=== PATIENT | male | born 1965 | race Caucasian/White ===

== ENCOUNTER 2016-11-02 10:39 | Observation (INO) | payer MEDICARE ==
[2016-11-02] MEDS ORDERED: Sodium Chloride 0.9% 10 ML FLUSH Syringe IV PRN (13:53)
[2016-11-02] MEDS ORDERED: Ativan 2 MG/1 ML VIAL IV PRN (13:53)
[2016-11-02] MEDS ORDERED: DIPRIVAN 200 MG/20 ML IV ONE (14:26)
[2016-11-02] MEDS ORDERED: Versed 2 MG/2 ML Injection IV ONE (14:26)
[2016-11-02] MEDS ORDERED: Golytely Solution 4000 ML PO ONE (15:00)
[2016-11-02] MEDS: Sodium Chloride 0.9% 10 ML FLUSH Syringe IV SCH ×2 (15:47→20:27)
[2016-11-02] MEDS ORDERED: IMODIUM 2 MG PO PRN (17:18)
[2016-11-02] MEDS ORDERED: DEXTROMETHORPHAN PO PRN (17:18)
[2016-11-02] MEDS ORDERED: BACITRACIN TP PRN (17:18)
[2016-11-02] MEDS ORDERED: TYLENOL 325 MG PO PRN (17:18)
[2016-11-02] MEDS ORDERED: [UNRECOGNIZED DRUG - REMARK] PO PRN (17:18)
[2016-11-02] MEDS ORDERED: GUAIFENESIN PO PRN (17:18)
[2016-11-02] MEDS ORDERED: BACIGUENT 30 GM TOP PRN (17:27)
[2016-11-02] MEDS ORDERED: Robitussin-Dm Syrup PO PRN (17:29)
[2016-11-02] MEDS ORDERED: MAALOX ES 30 ML UNIT DOSE PO PRN (17:30)
[2016-11-02] MEDS: Klonopin 0.5 MG PO SCH ×2 (17:50→20:27)
[2016-11-02] MEDS ORDERED: MEDICATION INTERVENTION MC PRN (18:13)
--- NOTE | 2016-11-02 20:12 | PCM.HP ---
History of Present Illness - Chief Complaint Chief Complaint: chronic abdominal pain,colonoscopy (in a.m.) History of Present Illness: is a 51 year old male mentally retarded patient from [facility] who is here for colon prep and colonoscopy. He has complained of chronic abdominal pain for some time, has been on PPI without relief. Pt lives in a longterm and has minimal verbal abilities. When asked, does admit to having a headache. - Review of Systems All Other Systems: Unable due to condition (mentally retarded/limited verbal abilities) Medications & Allergies Home Medications: Home Medication List Acetaminophen 325 mg [Tylenol 325 mg] 325 mg PO Q6HPRN PRN 11/02/16 [ History Confirmed 11/02/16] Acetaminophen [Tylenol Extra Strength] 500 mg PO BID 11/02/16 [History Confirmed 11/02/16] Atorvastatin Calcium [Lipitor] 10 mg PO HS 11/02/16 [History Confirmed 11/02/16] Bacitracin 1 each TP TID PRN PRN 11/02/16 [History Confirmed 11/02/16] Benztropine Mesylate 0.5 mg PO BID 11/02/16 [History Confirmed 11/02/16] Cetirizine HCl [Zyrtec] 10 mg PO DAILY 11/02/16 [History Confirmed 11/02/16] Chlorpheniramine Maleate [Allergy] 4 mg PO TIDPRN PRN 11/02/16 [History Confirmed 11/02/16] Clonazepam 0.5 mg [Klonopin 0.5 MG] 0.5 mg PO TID 11/02/16 [History Confirmed 11/02/16] Cyanocobalamin (Vitamin B-12) [Vitamin B-12] 1,000 mcg SL DAILY 11/02/16 [ History Confirmed 11/02/16] Guaifenesin/Dextromethorphan [Guaifenesin-Dm Solution] 10 ml PO DAILY PRN PRN [History Confirmed 11/02/16] Linaclotide [Linzess] 145 mcg PO DAILY 11/02/16 [History Confirmed 11/02/16] Loperamide HCl 2 mg [Imodium 2 mg] 2 mg PO TID PRN PRN 11/02/16 [History Confirmed 11/02/16] Mag Hydrox/Al Hydrox/Simeth [Maalox Es 30 ml Unit Dose] 30 ml PO TIDPRN [History Confirmed 11/02/16] Metoprolol Tartrate [Lopressor] 50 mg PO BID 11/02/16 [History Confirmed ] Naproxen [Naprosyn] 500 mg PO BIDPRN PRN 11/02/16 [History Confirmed 11/02/16] Omeprazole 20 MG [Prilosec 20 mg] 20 mg PO DAILY 11/02/16 [History Confirmed ] Risperidone [Risperdal] 2 mg PO QAM 11/02/16 [History Confirmed 11/02/16] Risperidone [Risperdal] 4 mg PO HS 11/02/16 [History Confirmed 11/02/16] Allergies/Adverse Reactions: Allergies Allergy/AdvReac Type Severity Reaction Status Date / Time No Known Drug Allergies Allergy Verified 12/25/14 06:23 - Past Medical History Past Medical History: Yes Neurological History: Other ENT History: Other Cardiac History: Hypertension, Other Respiratory History: No Pertinent History Endocrine Medical History: No Pertinent History Musculoskelatal History: Arthritis GI Medical History: GERD History: No Pertinent History Pyscho-Social History: Other Male Reproductive Disorders: No Pertinent History Comment: EXPLOSIVE BEHAVIOR. MENTAL RETARDED. ALLERGIES, TACHYCARDIA. Right ankle arthritis. nystagmus - Past Surgical History Past Surgical History: Yes Neuro Surgical History: No Pertinent History Cardiac History: No Pertinent History Respiratory Surgery: No Pertinent History GI Surgical History: No Pertinent History Genitourinary Surgical Hx: No Pertinent History Musculskeletal Surgical Hx: No Pertinent History, Other Male Surgical History: No Pertinent History Other Surgical History: dental - Social History Smoking Status: Never smoker Exposure to second hand smoke: No Alcohol: None Drug Use: none - Physical Exam Vital Signs: Vital Signs - 24 hr Temp Pulse Resp BP Pulse Ox 11/02/16 14:58 97.8 F 95 H 20 135/82 95 11/02/16 14:46 97.8 F 100 H 135/82 General Appearance: no apparent distress, other (He does have his hand on his L forehead) Neurologic Exam: alert, cooperative Eye Exam: eyes nml inspection Respiratory Exam: lungs clear, No crackles/rales, No rhonchi, No wheezing Cardiovascular Exam: regular rate/rhythm, No murmur Gastrointestinal/Abdomen Exam: soft, other (hypoactive bowel sounds. generalized TTP diffusely, no guarding or rebound) Back Exam: normal inspection Extremity Exam: No pedal edema Skin Exam: normal color, warm, dry Assessment/Plan (1) Abdominal pain Current Visit: No Status: Acute Qualifiers: Abdominal location: generalized Qualified Code(s): R10.84 - Generalized abdominal pain Assessment & Plan: Unable to specify location. Chronic. Pt to have colonoscopy; would recommend he have an EGD as well unless one has been done recently (I did attempt to check in EMR but unable to access his record at this time). Code(s): R10.9 - UNSPECIFIED ABDOMINAL PAIN (2) Profoundly mentally retarded Current Visit: Yes Status: Chronic Code(s): F73 - PROFOUND INTELLECTUAL DISABILITIES (3) Headache Current Visit: Yes Status: Acute Qualifiers: Headache type: unspecified Headache chronicity pattern: acute headache Intractability: not intractable Qualified Code(s): R51 - Headache Assessment & Plan: He did have his blinds open and the bright sunlight was shining in his eyes when I came to see him. He will get tylenol, more pain meds if needed. Code(s): R51 - HEADACHE
[2016-11-02] MEDS: Lopressor 50 MG PO SCH (20:25)
[2016-11-02] MEDS: Risperdal 1 MG PO SCH (20:25)
[2016-11-02] MEDS: TYLENOL EXTRA STRENGTH 500 MG PO SCH (20:26)
[2016-11-02] MEDS: COGENTIN 0.5 MG PO SCH (20:26)
[2016-11-02] MEDS: Zocor 10MG PO SCH (20:27)
[2016-11-02] MEDS ORDERED: NON-FORMULARY ITEM (Atorvastatin Calcium [Lipitor] 10 MG) PO SCH (22:00)
[2016-11-02] MEDS ORDERED: RISPERIDONE 4 MG PO SCH (22:00)
[2016-11-03] MEDS: Sodium Chloride 0.9% 10 ML FLUSH Syringe IV SCH ×3 (05:19→22:58)
[2016-11-03] MEDS ORDERED: Lactated Ringers 1,000 ML IV SCH (05:30)
[2016-11-03 05:42] LABS: Mean Cell Volume 84.2 fl (78-100); Mean Corpuscular Hemoglobin 28.3 pg (26-32); Mean Platelet Volume 10.6 fl (6-9.5); Platelet Count 118 K/mm3 (150-450); Red Blood Count 4.48 M/mm3 (4.1-5.6); White Blood Count 4.6 K/mm3 (4.0-10.5)
[2016-11-03 06:03] LABS: ALBUMIN 3.6 g/dL (3.4-5.0); ALKALINE PHOSPHATASE 93 U/L (46-116); BLOOD UREA NITROGEN 8 mg/dL (9-20); CHLORIDE 110 mEq/L (98-107); Carbon Dioxide 28.9 mEq/L (21-32); Glucose 96 MG/DL (70-110); Potassium 3.6 mEq/L (3.5-5.1); SGOT/AST 27 U/L (15-37); SGPT/ALT 53 U/L (12-78); SODIUM 145 mEq/L (136-145); Total Protein 6.9 gm/dL (6.4-8.2)
[2016-11-03] MEDS ORDERED: Lactated Ringers 1,000 ML IV ONE (09:09)
--- NOTE | 2016-11-03 09:14 | PCM.NOTE ---
Date and Time: 11/03/16911 Subjective Assessment: Colon prep inadequate, so he is receiving enemas. He denies PATEL today. - Review of Systems Constitutional: No Fever Abdominal/Gastrointestinal: No Vomiting Objective Exam General Appearance: no apparent distress Neurologic Exam: alert, cooperative Skin Exam: normal color, warm, dry Respiratory Exam: normal breath sounds, crackles/rales, rhonchi, No wheezing Cardiovascular Exam: regular rate/rhythm, normal heart sounds, No murmur Gastrointestinal/Abdomen Exam: soft, No tenderness, No distention, No mass Extremity Exam: normal inspection OBJECTIVE DATA Vital Signs: Vital Signs - 24 hr Temp Pulse Resp BP Pulse Ox 11/03/16 07:11 97.8 F 74 20 130/80 96 11/03/16 06:18 97.6 F 77 18 119/69 93 L 11/03/16 06:04 97.6 F 77 18 119/69 93 L 11/03/16 04:00 97.8 F 74 18 122/76 92 L 11/03/16 00:00 98.1 F 73 17 114/74 92 L 11/02/16 20:00 97.9 F 102 H 19 138/69 92 L 11/02/16 14:58 97.8 F 95 H 20 135/82 95 11/02/16 14:46 97.8 F 100 H 135/82 Pain Assessment - Last Documented Pain Scale Used [facility] Intake and Output: Intake & Output 10/31/16 11/01/16 11/02/16 11/03/16 11:59 11:59 11:59 11:59 Intake Total 2860 Balance 2860 Weight 104.099 kg Lab Results: Lab Results-Last 24 Hours 11/03/16 11/03/16 Range/Units 05:05 05:05 WBC 4.6 (4.0-10.5) K/mm3 RBC 4.48 (4.1-5.6) M/mm3 Hgb 12.7 (12.5-18.0) gm/dl Hct 37.7 L (42-50) % MCV 84.2 (78-100) fl MCH 28.3 (26-32) pg MCHC 33.7 (32-36) g/dl RDW 14.0 (11.5-14.0) % Plt Count 118 L (150-450) K/mm3 MPV 10.6 H (6-9.5) fl Sodium 145 (136-145) mEq/L Potassium 3.6 (3.5-5.1) mEq/L Chloride 110 H (98-107) mEq/L Carbon Dioxide 28.9 (21-32) mEq/L Anion Gap 10.0 (5-15) MEQ/L BUN 8 L (9-20) mg/dL Creatinine 0.93 (0.55-1.30) mg/dl Estimated GFR > 60 ML/MIN Glucose 96 (70-110) MG/DL Calcium 8.9 (8.5-10.1) mg/dL Total Bilirubin 0.50 (0.2-1.0) mg/dL AST 27 (15-37) U/L ALT 53 (12-78) U/L Alkaline Phosphatase 93 (46-116) U/L Serum Total Protein 6.9 (6.4-8.2) gm/dL Albumin 3.6 (3.4-5.0) g/dL Assessment/Plan (1) Abdominal pain Current Visit: No Status: Acute Qualifiers: Abdominal location: generalized Qualified Code(s): R10.84 - Generalized abdominal pain Assessment & Plan: EGD/colonoscopy this morning with Dr. Martin, thank you! Code(s): R10.9 - UNSPECIFIED ABDOMINAL PAIN (2) Headache Current Visit: Yes Status: Resolved Qualifiers: Headache type: unspecified Headache chronicity pattern: acute headache Intractability: not intractable Qualified Code(s): R51 - Headache Code(s): R51 - HEADACHE (3) Moderately mentally retarded Current Visit: Yes Status: Chronic Code(s): F71 - MODERATE INTELLECTUAL DISABILITIES
--- NOTE | 2016-11-03 09:31 | OP ---
SURGERY DATE/TIME: 11/03/2016 0830 PREOPERATIVE DIAGNOSES: 1) Chronic abdominal pain. 2) Chronic diarrhea. POSTOPERATIVE DIAGNOSES: 1) Normal EGD. 2) Normal colon. 3) Poor bowel prep. PROCEDURES: 1) EGD. 2) Colonoscopy. SURGEON: Adam Martin M.D. ANESTHESIA: MAC by Henry Myers CRNA. ESTIMATED BLOOD LOSS: None. SPECIMENS: None. DESCRIPTION OF PROCEDURE: After informed written consent was obtained, the patient was taken to the endoscopy suite. He underwent monitored anesthesia and a bite block was inserted. The endoscope was inserted into the posterior oropharynx and under direct visualization the esophagus was traversed. The esophageal mucosa had a normal appearance. The gastroesophageal junction appeared normal upon entering the stomach. The gastric mucosa had a normal rugated appearance free of any lesions or defects. The gastric antrum was noted to be within normal limits. The pylorus was traversed and the duodenum had a normal mucosal appearance as well. Upon withdrawal all mucosal surfaces again appeared normal free of lesions or defects. The scope was removed and the scopes were switched. A digital rectal exam then showed normal sphincter tone and no internal lesions. The scope was inserted in the rectum and sequentially the entire colonic mucosa was traversed. There was semisolid and liquid stool present throughout the entire length of the colon. The level of cecum was reached and verified with direct visualization of ileocecal valve. Upon withdrawal careful mucosal inspection revealed no gross mucosal abnormalities. Prior to withdrawal retroflexion was within normal limits. The scope was removed and the patient was transferred to the recovery room in good condition.
[2016-11-03] MEDS ORDERED: NON-FORMULARY ITEM (Omeprazole 20 Mg [Prilosec 20 Mg] 20 MG) PO SCH (10:00)
[2016-11-03] MEDS ORDERED: NON-FORMULARY ITEM (Cetirizine Hcl [Zyrtec] 10 MG) PO SCH (10:00)
[2016-11-03] MEDS ORDERED: NON-FORMULARY ITEM (Linaclotide [Linzess] 145 MCG) PO SCH (10:00)
[2016-11-03] MEDS ORDERED: NON-FORMULARY ITEM (Cyanocobalamin (Vitamin B-12) [Vitamin B-12] 1,000 MCG) SL SCH (10:00)
[2016-11-03] MEDS ORDERED: NON-FORMULARY ITEM (Risperidone [Risperdal] 2 MG) PO SCH (10:00)
[2016-11-03] MEDS: CLARITIN 10 MG PO SCH (11:49)
[2016-11-03] MEDS: Lopressor 50 MG PO SCH ×2 (11:49→22:57)
[2016-11-03] MEDS: TYLENOL EXTRA STRENGTH 500 MG PO SCH ×3 (11:49→22:58)
[2016-11-03] MEDS: Protonix 40MG Tablet PO SCH (11:50)
[2016-11-03] MEDS: Risperdal 1 MG PO SCH ×2 (11:50→22:57)
[2016-11-03] MEDS: Klonopin 0.5 MG PO SCH ×3 (11:50→22:56)
[2016-11-03] MEDS: Vitamin B-12 500 MCG PO SCH (11:51)
[2016-11-03] MEDS: COGENTIN 0.5 MG PO SCH (22:56)
[2016-11-03] MEDS: Zocor 10MG PO SCH (22:58)
[2016-11-04 03:31] LABS: Bacteria FEW /HPF (NEGATIVE); Bilirubin NEGATIVE (NEGATIVE); Blood NEGATIVE Ery/ul (0-5); COMPLETE URINE MICROSCOPIC? YES; Collection Type VOID; Epithelial Cells FEW /HPF (FEW); Glucose NEGATIVE (NEGATIVE); Leukocyte Esterase TRACE (NEGATIVE); Mucus MODERATE /HPF (NEGATIVE); WBC 15-25 /HPF (0-5)
[2016-11-04] MEDS: Sodium Chloride 0.9% 10 ML FLUSH Syringe IV SCH (05:33)
[2016-11-04 08:10] VITALS: O2SAT 90
--- NOTE | 2016-11-04 08:31 | PCM.DS ---
Discharge Summary Date of Admission: 11/02/16 14:25 Admitting Physician: JOSE HAWKINS Primary Care Provider: JOSE HAWKINS Allergies Allergies No Known Drug Allergies Allergy (Verified 12/25/14 06:23) Hospital Summary - Hospital Course Hospital Course: Pt admitted for colonoscopy prep. His prep was not clear so he had enemas th emorning of the colonoscopy and EGD. Procedures done. He was noted to have IV infiltration of ditropan, extending proximally up the arm 2/[address] way to the axilla with firm area; ditropan was manually expressed from the area in surgery. that night he was lethargic but rouseable. He tolerated clear liquids. This morning he will wake to touch, nods to indicate answers to questions but not as alert as usual. If he wakes up later today and tolerates a regular diet, he will be discharged back to his home wiht instructions for caregivers to watch the R arm carefully for signs of necrosis or infection. - Vitals & Intake/Output Vital Signs: Vital Signs Temperature 98.7 F 11/04/16 07:00 Pulse Rate 93 H 11/04/16 07:00 Respiratory Rate 20 11/04/16 07:00 Blood Pressure 116/72 11/04/16 07:00 O2 Sat by Pulse Oximetry 90 L 11/04/16 07:00 Intake & Output: Intake & Output 11/01/16 11/02/16 11/03/16 11/04/16 11:59 11:59 11:59 11:59 Intake Total 2860 1320 Balance 2860 1320 Weight 104.099 kg - Lab Result Diagrams: 11/03/16 05:05 11/03/16 05:05 Lab Results-Last 24 Hrs: Lab Results-Last 24 Hours 11/04/16 Range/Units 03:04 Ur Collection Type VOID Urine Color YELLOW (YELLOW) Urine Appearance CLEAR (CLEAR) Urine pH 6.0 (5-6) Ur Specific [place] 1.015 (1.005-1.025) Urine Protein NEGATIVE (Negative) Urine Ketones NEGATIVE (NEGATIVE) Urine Blood NEGATIVE (0-5) Brad/ul Urine Nitrite NEGATIVE (NEGATIVE) Urine Bilirubin NEGATIVE (NEGATIVE) Urine Urobilinogen NORMAL (0-1) mg/dL Ur Leukocyte Esterase TRACE (NEGATIVE) Urine Microscopic RBC 5-10 (0-2) /HPF Urine Microscopic WBC 15-25 (0-5) /HPF Ur Epithelial Cells FEW (FEW) /HPF Urine Bacteria FEW (NEGATIVE) /HPF Urine Mucus MODERATE (NEGATIVE) /HPF Urine Glucose NEGATIVE (NEGATIVE) mg/dL Specimen Received 11/04/16 0245 Discharge Exam General Appearance: no apparent distress Neurologic Exam: cooperative, other (wakes to touch, does not open his eyes, smiles and nods, tells me "arm" hurts.) Skin Exam: other (RUE from distal to elbow to approx 2/[address] proximal toward axilla there is mild erythema, regressed from the marked border, mildly ttp, no induration, no warmth) Respiratory Exam: normal breath sounds, lungs clear, No crackles/rales, No rhonchi, No wheezing Cardiovascular Exam: regular rate/rhythm, normal heart sounds, No murmur Gastrointestinal/Abdomen Exam: soft, normal bowel sounds, No tenderness, No distention, No mass, No guarding, No rebound Extremity Exam: No pedal edema Final Diagnosis/Problem List - Final Discharge Diagnosis/Problem (1) Abdominal pain Current Visit: No Status: Acute Assessment & Plan: Colonoscopy and EGD done, reports are pending. (2) Headache Current Visit: Yes Status: Resolved (3) Moderately mentally retarded Current Visit: Yes Status: Chronic (4) IV infiltration Current Visit: Yes Status: Acute Assessment & Plan: R arm. For the next 5 days, arm needs to be checked at least twice a day for signs of infection including increased warmth, increased redness, firmness, increased pain, any exudate/pus, or patient with any temperature over 100. Any of those signs and staff need to call the school transportation supervisor doctor EMMA. - Discharge Disposition: Home, Self-Care Condition: Stable Prescriptions: No Action Atorvastatin Calcium [Lipitor] 10 mg PO HS Mag Hydrox/Al Hydrox/Simeth [Maalox Es 30 ml Unit Dose] 30 ml PO TIDPRN Guaifenesin/Dextromethorphan [Guaifenesin-Dm Solution] 10 ml PO DAILY PRN PRN PRN Reason: Cough Bacitracin 1 each TP TID PRN PRN PRN Reason: minor cuts scratches or rashes Chlorpheniramine Maleate [Allergy] 4 mg PO TIDPRN PRN PRN Reason: rhinorrhea Acetaminophen 325 mg [Tylenol 325 mg] 325 mg PO Q6HPRN PRN PRN Reason: pain or fever Loperamide HCl 2 mg [Imodium 2 mg] 2 mg PO TID PRN PRN PRN Reason: Diarrhea Naproxen [Naprosyn] 500 mg PO BIDPRN PRN PRN Reason: Pain Linaclotide [Linzess] 145 mcg PO DAILY Risperidone [Risperdal] 4 mg PO HS Risperidone [Risperdal] 2 mg PO QAM Omeprazole 20 MG [Prilosec 20 mg] 20 mg PO DAILY Acetaminophen [Tylenol Extra Strength] 500 mg PO BID Cyanocobalamin (Vitamin B-12) [Vitamin B-12] 1,000 mcg SL DAILY Benztropine Mesylate 0.5 mg PO BID Clonazepam 0.5 mg [Klonopin 0.5 MG] 0.5 mg PO TID Metoprolol Tartrate [Lopressor] 50 mg PO BID Cetirizine HCl [Zyrtec] 10 mg PO DAILY Follow up with: JOSE HAWKINS [Primary Care Provider] - 11/11/16 10:45 am Forms: Patient Portal Information
[2016-11-04] MEDS: CLARITIN 10 MG PO SCH (09:38)
[2016-11-04] MEDS: TYLENOL EXTRA STRENGTH 500 MG PO SCH (09:38)
[2016-11-04] MEDS: Lopressor 50 MG PO SCH (09:38)
[2016-11-04] MEDS: Risperdal 1 MG PO SCH (09:38)
[2016-11-04] MEDS: Klonopin 0.5 MG PO SCH ×2 (09:39→15:15)
[2016-11-04] MEDS: COGENTIN 0.5 MG PO SCH (09:39)
[2016-11-04] MEDS: Vitamin B-12 500 MCG PO SCH (09:39)
[2016-11-04] MEDS: Protonix 40MG Tablet PO SCH (09:39)
[2016-11-04 13:41] VITALS: BP 126/68; PULSE 109
== END 2016-11-04 16:15 | disposition home or self-care (01) ==
LOC: MED SURG 14:25
PROVIDERS: ADMIT Family Medicine; ATTEND Family Medicine
PROC: 0DJD8ZZ Inspection of Lower Intestinal Tract, Via Natural or Artificial Opening Endoscopic (ICD-10-PCS; principal; 2016-11-03)
PROC: 0DJ08ZZ Inspection of Upper Intestinal Tract, Via Natural or Artificial Opening Endoscopic (ICD-10-PCS; 2016-11-03)
DX: R10.84 Generalized abdominal pain (principal); R51 Headache; F71 Moderate intellectual disabilities; F73 Profound intellectual disabilities; Z79.899 Other long term (current) drug therapy; I10 Essential (primary) hypertension; K21.9 Gastro-esophageal reflux disease without esophagitis; M19.90 Unspecified osteoarthritis, unspecified site; F63.81 Intermittent explosive disorder; K52.9 Noninfective gastroenteritis and colitis, unspecified
CPT/HCPCS: 00740; 00810; 36415; 80053; 81000; 85027; 93268; G0378; J2250; J2704; A9270-GY

== ENCOUNTER 2018-07-24 05:49 | Day surgery (SDC) | payer MEDICARE ==
[2018-07-24] MEDS ORDERED: DIPRIVAN 200 MG/20 ML IV ONE (05:50)
[2018-07-24] MEDS ORDERED: Lactated Ringers 1,000 ML IV ONE ×2 (06:40→08:19)
[2018-07-24] MEDS ORDERED: Lactated Ringers 1,000 ML IV SCH (07:00)
[2018-07-24 08:22] LABS: Hematocrit 40.2 % (42-50); Hemoglobin 13.4 gm/dl (12.5-18.0); Mean Cell Volume 86.5 fl (78-100); Mean Corpuscular Hemoglobin 28.8 pg (26-32); Mean Corpuscular Hgb Concent. 33.3 g/dl (32-36); Mean Platelet Volume 10.9 fl (6-9.5); Platelet Count 107 K/mm3 (150-450); Red Blood Count 4.65 M/mm3 (4.1-5.6); Red Cell Distribution Width 13.9 % (11.5-14.0); White Blood Count 5.5 K/mm3 (4.0-10.5)
[2018-07-24 09:09] LABS: ALBUMIN 4.5 g/dL (3.5-5.0); ALKALINE PHOSPHATASE 89 U/L (38-126); BLOOD UREA NITROGEN 11 mg/dL (9-20); CHLORIDE 104 mmol/L (98-107); Calcium 9.5 mg/dL (8.4-10.2); Carbon Dioxide 27 mmol/L (22-30); Cholesterol 123 mg/dL (50-200); Creatinine 1 0.63 mg/dL (0.66-1.25); Glucose 94 mg/dL (74-106); HDL CHOLESTEROL 27 mg/dL (40-60); LDL, DIRECT 72 mg/dL (30-100); Potassium 4.1 mmol/L (3.5-5.1); Risk Ratio 4.6; SGOT/AST 24 U/L (17-59); SGPT/ALT 18 U/L (0-50); SODIUM 142 mmol/L (137-145); TRIGLYCERIDE 196 mg/dL (30-150); Total Protein 8.3 g/dL (6.3-8.2)
[2018-07-24 09:12] VITALS: O2SAT 100
[2018-07-24 09:33] VITALS: BP 137/85; PULSE 73
[2018-07-24 09:42] LABS: Appearance CLEAR (CLEAR); Bilirubin NEGATIVE (NEGATIVE); Blood NEGATIVE Ery/ul (0-5); Glucose NEGATIVE (NEGATIVE); Ketones NEGATIVE (NEGATIVE); Leukocyte Esterase NEGATIVE (NEGATIVE); Nitrite NEGATIVE (NEGATIVE); Protein,Urine Dip NEGATIVE (Negative); Specific Gravity 1.005 (1.005-1.025); Urobilinogen NEGATIVE mg/dL (0-1)
--- NOTE | 2018-07-24 13:26 | OP ---
SURGERY DATE/TIME: 07/24/2018 0742 PREOPERATIVE DIAGNOSES: 1) Dyspepsia. 2) Screening colon exam. POSTOPERATIVE DIAGNOSES: 1) Mild gastritis. 2) Normal colon. PROCEDURES: 1) Esophagogastroduodenoscopy with cold forceps biopsy. 2) Colonoscopy. SURGEON: Dr. Zapata. ANESTHESIA: Medications were given by the anesthesia department. BRIEF HISTORY: The patient is a 52 year old white male presenting now for endoscopic evaluation. He has been complaining of dyspepsia. The patient has a developmental disability and some limited intelligence. He can provide me with little history. The patient was felt the need to have endoscopic evaluation as he is on omeprazole but still having a lot of dyspepsia and belching. The patient was appraised of the risks of the procedure including the risk of perforation, phlebitis, untoward reaction to medication, bleeding and missed lesions. DESCRIPTION OF PROCEDURE: The patient was given the medications by the anesthesia department. He had continuous pulse oximetry, ECG monitoring, intermittent blood pressure monitoring and tidal CO2 monitoring during the examination. He was placed in the left lateral decubitus position. A bite block was placed. The flexible Olympus gastroscope was used to intubate the oropharynx. A view of the larynx was obtained and was normal. The scope was introduced throughout the esophagus which appeared to be normal throughout its length. The stomach was entered where normal gastric rugal folds were seen and these distended nicely with insufflation of air. The scope was passed along the greater curvature of the stomach to the antrum. The pylorus encountered and intubated. Duodenum inspected and found to be normal. The scope is withdrawn towards the stomach. A retroflex view obtained of the lesser curvature, fundus and cardia regions of the stomach. There appeared to be normal appearance and no hiatal hernia. The scope was redirected towards the gastric antrum and biopsies were obtained to rule out the presence of Helicobacter pylori-type organisms. The scope was removed from the patient. Next, a digital rectal examination was performed and revealed normal anal sphincter tone and no masses and normal prostate. The flexible Olympus pediatric colonoscope was used to intubate the rectum. A view of the colon was developed sequentially to the cecum. Upon insertion and withdrawal, including a retroflex view in the rectum, no mucosal lesions were encountered. It was noted that there was a large amount of residual stool. The patient did have several tap water enemas to clear as best as we could and we did suction large amounts of fluids from the colon. The patient was taken to the recovery room in good condition.
== END 2018-07-24 09:35 | disposition home or self-care (01) ==
LOC: SDC 05:49
PROVIDERS: ATTEND Family Medicine
DX: Z12.11 Encounter for screening for malignant neoplasm of colon (principal); R10.13 Epigastric pain; K29.70 Gastritis, unspecified, without bleeding; F79 Unspecified intellectual disabilities; Z79.899 Other long term (current) drug therapy; Z12.5 Encounter for screening for malignant neoplasm of prostate; I10 Essential (primary) hypertension; K21.9 Gastro-esophageal reflux disease without esophagitis
CPT/HCPCS: 36415; 80053; 80061; 81001; 83721; 84443; 85027; 88305; G0103; J2704